=== PATIENT | female | born 1960 | race Hispanic/Latino ===

== ENCOUNTER 2017-03-27 10:13 | Inpatient (IN) | payer MEDICAID ==
--- NOTE | 2017-03-27 10:40 | C.PDOC ---
History Of Present Illness 56 y/o female is transferred from [facility] for psych admission due to depression and suicidal ideation. No active physical complaints at this time. Time Seen by Provider: 03/27/17 10:37 Chief Complaint (Nursing): Psychiatric Evaluation History Per: Patient History/Exam Limitations: no limitations Onset/Duration Of Symptoms: Gradual Current Symptoms Are (Timing): Still Present Suicide/Self Injury Attempted (Context): None Modifying Factor(s): None Severity: None Pain Scale Rating Of: 0 Associated Symptoms: Depression, Suicidal Thoughts Involuntary Hold By: None Recent travel outside of the [place]: No Additional History Per: Patient Past Medical History Reviewed: Historical Data, Nursing Documentation, Vital Signs Vital Signs: Last Vital Signs Temp Pulse Resp 18 03/27/17 12:46 BP Pulse Ox - Medical History PMH: Depression, Fibromyalgia Family History: States: Unknown Family Hx - Social History Hx Alcohol Use: No Hx Substance Use: No - Immunization History Hx Tetanus Toxoid Vaccination: No Hx Influenza Vaccination: No Hx Pneumococcal Vaccination: No Review Of Systems Except As Marked, All Systems Reviewed And Found Negative. Constitutional: Negative for: Fever, Chills Cardiovascular: Negative for: Chest Pain, Palpitations Respiratory: Negative for: Cough, Shortness of Breath Gastrointestinal: Negative for: Nausea, Vomiting, Abdominal Pain Musculoskeletal: Negative for: Neck Pain, Back Pain Neurological: Negative for: Headache, Dizziness Psych: Positive for: Depression, Suicidal ideation Physical Exam - Physical Exam Appears: Non-toxic, No Acute Distress Skin: Normal Color, Warm, Dry Head: Atraumatic, Normacephalic Eye(s): bilateral: Normal Inspection, EOMI Nose: Normal Oral Mucosa: Moist Neck: Normal ROM, Supple Chest: Symmetrical Cardiovascular: Rhythm Regular, No Murmur Respiratory: Normal Breath Sounds, No Rales, No Rhonchi, No Wheezing Gastrointestinal/Abdominal: Soft, No Tenderness Extremity: Normal ROM, No Deformity Extremity: Bilateral: Atraumatic Neurological/Psych: Oriented x3, Normal Speech ED Course And Treatment Progress Note: Patient transferred from [facility] for psych evaluation. Patient to be admitted for depression under Dr Linder. In no distress Disposition Discussed With : Marilu Linder Doctor Will See Patient In The: Hospital - Disposition Disposition: HOSPITALIZED Disposition Time: 13:00 Condition: STABLE - POA Present On Arrival: None - Clinical Impression Clinical Impression: Moderate major depression, single episode - PA / WET ROOM SUPERVISOR / Resident Statement /DO has reviewed & agrees with the documentation as recorded. - Scribe Statement The provider has reviewed the documentation as recorded by the Hueyibradu Chen All medical record entries made by the Hueyibradu were at my direction and personally dictated by me. I have reviewed the chart and agree that the record accurately reflects my personal performance of the history, physical exam, medical decision making, and the department course for this patient. I have also personally directed, reviewed, and agree with the discharge instructions and disposition. Decision To Admit - Pt Status Changed To: Hospital Disposition Of: Inpatient - Admit Certification Admit to Inpatient:: After my assessment, the patient will require hospitalization for at least two midnights. This is because of the severity of symptoms shown, intensity of services needed, and/or the medical risk in this patient being treated as an outpatient. - InPatient: Physician Admission Certification: I certify that this patient requires 2 or more midnights of care for the following reason:: Depression. SI - . Bed Request Type: Psychiatry Admitting Physician: Marilu Linder Patient Diagnosis: Moderate major depression, single episode
--- NOTE | 2017-03-27 11:43 | PCM.BM ---
<Olga Urban - Last Filed: 03/27/17 11:39> Treatment Plan Problems - Problems identified on initial assessmt Depression Date Initiated: 03/27/17 Time Initiated: 11:40 Assessment reference: NA Status: Active Suicidal Ideation Date Initiated: 03/27/17 Time Initiated: 11:46 Assessment reference: NA Status: Active Treatment assets and liabiliti Patient Assests: cooperative, ADL independent, cognitively intact, good interpersonal skills Patient Liabilities: financial problems, substance abuse (None), medical problems (Hypertension, Fibromyalgia) - Milieu Protocol Maintain good personal hygiene: daily Encourage regular showers, daily Remind patient to perform daily oral care, other Assist patient to perform ADL's (Self) Conduct patient checks and document Observation sheet: Q15 minutes (Safety) Maintain personal safety: every shift Educate patient to report safety concerns to staff, every shift Monitor environment for contraband/sharps Medication safety: Monitor for expected outcome, potential side effects: every shift, Assess barriers to learning: every shift, Assess readiness for medication education: every shift <Tanvir Flores - Last Filed: 03/27/17 17:23> - Diagnosis (1) Moderate major depression, single episode Status: Acute Interventions: 03/27/17 17:24 * Assess/adjust medications daily and /or as needed * See patient on an individual basis 7x/week to assess symptoms of depression * Monitor for side effects & effectiveness of medications * (2) Panic disorder Status: Acute Interventions: 03/27/17 17:24 * Assess/adjust medications daily and /or as needed * See patient on an individual basis 7x/week to assess symptoms of anxiety * Educate patient regarding benefits, side effects and risks of prescribed medications * <Stephanie Person - Last Filed: 03/29/17 10:40> Family Contact Family involvement: Famliy/SO not involved - Goals for Treatment Patient goals for treatment: "I [facility] to go back to [facility]." Discharge/Continuing Care - Education Needs Education Needs: Patient Medication, Patient Coping Skills, Patient Placement options, Patient Community resources - Discharge Discharge Criteria: Tolerates medication w/o severe side effects, Free of Suicidal thoughts, Reduction of target symptoms Discharge to:: Custodial - Treatment Team Participation Discussed with Family/SO: No Was Patient/Family/SO present at Treatment Team Meeting: Yes
--- NOTE | 2017-03-27 15:44 | PCM.PSYCH ---
Initial Psychiatric Evaluation - Initial Psychiatric Evaluation Type of Admission: Voluntary Legal Status: Capacity Chief Complaint (in patient's own words): "I'm losing my mind." History of Present Illness and Precipitating Events: Pt is a 56 year old female with PMH of HTN who was transferred from [facility]. Patient is single and has 2 children ages thirty and twenty three. She is currently unemployed and not receiving any income, although she has previously worked as a Home Health Aid. Pt has not had a place to live since Saturday after she left her sisters home where she was allowed to stay for two days. Pt is not involved in any legal problems or on probation. Pt was previously living in [place], [place] where she lived with her boyfriend of 5 years, however, she was not happy in the relationship since she felt like she was more like his mother, all I did was cook and clean, therefore, decided to find a live-in home health aid job in [place] where her family resides and leave her relationship. While working as a home health aid, she met her clients daughter who thought that she was using drugs and was let go by her employer last Saturday. She then stayed over at her sisters home who allowed her to stay for the weekend but was told by her sisters boyfriend she needed to leave by Saturday. While staying with her sister she was in a rage after losing her job and wanting to kill her for taking away my job, pt states that she did not actually have plan to do so. Sister and daughter called the ambulance where she was taken to [facility]. There she reported suicidal ideation, however, today she states she only said because she felt that was the only way anyone would listen and help her. She is currently worried about being homeless and has anxiety about it. She denies any psychiatric history, except for previous depression and panic attacks. She was given zoloft 100 mg BID but takes one only and klonopin 1 mg TID, confirmed via I-STOP. She also denies any psychiatric family history. Pt reports smoking ppd. After care discussed. Pt states that she does not currently have a plan, but admits that her current state of mind is not suitable for looking for employment at this moment but that she also does not want to be homeless and live in her car. It is suggested that the patient find employment as a Home health aid or ask other family members if she can reside with them until she does find employment. Will work with . Current Medications: Active Medications Generic Name Dose Route Start Last Admin Trade Name Freq PRN Reason Stop Dose Admin Clonazepam 1 mg 03/27/17 18:00 Klonopin PO BID RHONA Clonidine HCl 0.1 mg 03/27/17 12:20 Catapres PO Q6H PRN BP>150/100 or P>110 Hydrochlorothiazide 25 mg 03/27/17 14:00 Hydrodiuril PO DAILY RHONA Hydroxyzine HCl 25 mg 03/27/17 11:54 Atarax PO Q4H PRN Anxiety Ibuprofen 600 mg 03/27/17 11:54 Motrin Tab PO Q6H PRN Pain, moderate (4-7) Lisinopril 20 mg 03/27/17 14:00 Zestril PO DAILY RHONA Pneumococcal Polyvalent Vaccine 0.5 ml 03/30/17 10:00 Pneumovax 23 Vaccine IM 03/30/17 10:01 .ONCE ONE Sertraline HCl 100 mg 03/28/17 10:00 Zoloft PO DAILY RHONA Trazodone HCl 50 mg 03/27/17 11:54 Desyrel PO HS PRN Insomnia Past Psychiatric History - Past Psychiatric History Previous Treatment History: None Pertinent Medical Hx (Current Medical&Sleep Prob, Allergies): Allergies Allergy/AdvReac Type Severity Reaction Status Date / Time No Known Allergies Allergy Verified 03/27/17 10:27 Clonazepam 03/27/17 Lisinopril 03/27/17 Sertraline 03/27/17 Review of Systems - Neurological Neurological: UNREMARKABLE - Psychiatric Psychiatric: Abnormal Sleep Pattern, Anxiety, Depression, Difficulty Concentrating, Irritability, Panic Attacks. absent: Hallucinations, Homicidal Ideation, Suicidal Ideation Mental Status Examination - Personal Presentation Personal Presentation: Looks older than stated age - Affect Affect: Broad - Motor Activity Motor Activity: Psychomotor Agitation - Reliability in Providing Information Reliability in Providing Information: Good - Speech Speech: Organized, Relevant, Coherent, Other Additional comments: Circumstantial - Mood Mood: Anxious - Formal Thought Process Formal Thought Process: No Impairment - Obsessions/Compulsions Obsessions: None Compulsions: None - Cognitive Functions Orientation: Person, Place, Situation, Time Sensorium: Alert Attention/Concentration: Attentive Estimate of Intelligence: Average Judgement: Intact, as evidence by: Insight regarding need for hospitalization Memory: Recent intact, as evidence by: Ability to recall events of the day, Remote intact, as evidenced by: Abilit to recall sig. 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 d/o - Recommended/Plan of Treatment Treatment Recommendations and Plan of Treatment: Depression and panic: - Zoloft 100mg PO daily - Trazodone 50mg PO PRN - Klonopin 1mg PO BID - Atarax 25mg PO Q4 PRN Attend groups and activities Individual therapy Psychoeducation and support Encourage compliance with meds and after care Teach healthy lifestyle methods, i.e. diet, exercise, meditation Smoking cessation Borderine: -Structure -Psychotherapy 37 min Projected ELOS: 7 days Prognosis: Good with treatment - Smoking Cessation Smoking Cessation Initiated: Yes
--- NOTE | 2017-03-28 13:46 | PCM.PYCHPN ---
Psychiatric Progress Note - Psychiatric Progress Note Patient seen today, length of contact: 17 minutes Patient Chief Complaint: "I'm feeling much better" Problems Identified/Issues Discussed: The pt is seen, chart reviewed, case discussed with staff. The pt is compliant with medications and reports no side-effects. Pt reports sleeping well throughout the night, feeling much more like herself. Received a note her daughter last night which really boosted her spirits. Symptoms are improving but needs more time to stabilize. After care discussed, support and psychoeducation given. Will speak with SW in regards to housing and resources available to her. Medication Change: Yes (Zoloft started ) Medical Record Reviewed: Yes Mental Status Examination - Cognitive Function Orientation: Person, Place, Situation, Time Memory: Intact Attention: WNL Concentration: WNL Association: WNL Fund of Knowledge: WNL - Mood Mood: Neutral - Affect Affect: Broad - Speech Speech: Appropriate - Formal Thought Process Formal Thought Process: No Impairment - Suicidal Ideation Suicidal Ideation: No - Homicidal Ideation Homicidal Ideation: No Goal/Treatment Plan - Goal/Treatment Plan Need for Continued Stay: Remain at risks for inpatient hospitalization, Discharge may exacerbated symptoms Progress Toward Problem(s) and Goals/Treatment Plan: Depression and panic: - Zoloft 100mg PO daily - Trazodone 50mg PO PRN - Klonopin 1mg PO BID - Atarax 25mg PO Q4 PRN Attend groups and activities Individual therapy Psychoeducation and support Encourage compliance with meds and after care Teach healthy lifestyle methods, i.e. diet, exercise, meditation Smoking cessation Borderline: -Structure -Psychotherapy 16 min
--- NOTE | 2017-03-29 13:56 | PCM.PYCHPN ---
Psychiatric Progress Note - Psychiatric Progress Note Patient seen today, length of contact: 19 mins Patient Chief Complaint: "I feel okay doc" Problems Identified/Issues Discussed: The pt is seen, chart reviewed, case discussed with staff. The pt is compliant with medications and reports no side-effects. Upon initial conversation, patient states that she slept well and her mood has increased, denies SI. However, in team meeting patient was agitated because she felt "nothing was being done for me here", she was entitled and demanding that the SW do things for her. She even said outrageous things like "I'll sit here (she put arms behind her head) and YOU will do these for me!!" Pt became angry and uncooperative during the interview at which point the interview was ended. Symptoms are improving but needs more time to stabilize. Her personlaity disorder and lack of insight are obstacles but will be worked on. After care discussed, support and psychoeducation given. Medication Change: No Medical Record Reviewed: Yes Mental Status Examination - Cognitive Function Orientation: Person, Place, Situation, Time Memory: Intact Attention: WNL Concentration: WNL Association: WNL Fund of Knowledge: WNL - Mood Mood: Anxious, Other Additional comments: Agitated - Affect Affect: Broad - Speech Speech: Loud - Formal Thought Process Formal Thought Process: No Impairment - Suicidal Ideation Suicidal Ideation: No - Homicidal Ideation Homicidal Ideation: No Goal/Treatment Plan - Goal/Treatment Plan Need for Continued Stay: Discharge may exacerbated symptoms Progress Toward Problem(s) and Goals/Treatment Plan: Depression and panic: - Zoloft 100mg PO daily - Trazodone 50mg PO PRN - Klonopin 1mg PO BID - Atarax 25mg PO Q4 PRN Attend groups and activities Individual therapy Psychoeducation and support Encourage compliance with meds and after care Teach healthy lifestyle methods, i.e. diet, exercise, meditation Smoking cessation Borderline: -Structure -Psychotherapy 19 min Estimated Date of D/C: 04/02/17 (Patient needs more time to stabilize )
[2017-03-30 07:10] VITALS: O2SAT 95
[2017-03-30] MEDS ORDERED: Pneumococcal 23-Valent Vaccine IM ONE (10:00)
--- NOTE | 2017-03-30 17:10 | PCM.PYCHPN ---
Psychiatric Progress Note - Psychiatric Progress Note Patient seen today, length of contact: 25 mins Patient Chief Complaint: I'm fine Problems Identified/Issues Discussed: Patient was seen. Chart was reviewed important content noted. Nurse input received. Patient has no new complaints. No events overnight. Patient slept well and is eating well. Patient denies any depressive symptoms. Denies suicidal or homicidal ideations. Patient does not report hallucinations. No delusions elicited. No paranoia elicited. Patient has remained in good clinical and behavioral control. Patient is finding medications beneficial and would like to continue with treatment plan. Diagnostic Results: None Medication Change: No Medical Record Reviewed: Yes Mental Status Examination - Cognitive Function Orientation: Person, Place, Situation, Time Memory: Intact Attention: WNL Concentration: WNL Association: WNL Fund of Knowledge: WNL - Mood Mood: Depressed, Anxious, Other - Affect Affect: Broad - Speech Speech: Appropriate - Formal Thought Process Formal Thought Process: No Impairment - Suicidal Ideation Suicidal Ideation: No - Homicidal Ideation Homicidal Ideation: No Plan: denied Goal/Treatment Plan - Goal/Treatment Plan Need for Continued Stay: Discharge may exacerbated symptoms Progress Toward Problem(s) and Goals/Treatment Plan: Depression and panic: - Zoloft 100mg PO daily - Trazodone 50mg PO PRN - Klonopin 1mg PO BID - Atarax 25mg PO Q4 PRN Attend groups and activities Individual therapy Psychoeducation and support Encourage compliance with meds and after care Teach healthy lifestyle methods, i.e. diet, exercise, meditation Smoking cessation Borderline: -Structure -Psychotherapy Estimated Date of D/C: 04/02/17 (Patient needs more time to stabilize ) - Smoking Cessation Smoking Cessation Initiated: Yes
--- NOTE | 2017-03-31 17:12 | PCM.PYCHPN ---
Psychiatric Progress Note - Psychiatric Progress Note Patient seen today, length of contact: 25 mins Patient Chief Complaint: "I'm better" Problems Identified/Issues Discussed: Patient was seen. Chart was reviewed important content noted. Nurse input received. Patient has no new complaints. No events overnight. Patient slept well and is eating well. Patient denies any depressive and anxiety symptoms. Denies suicidal or homicidal ideations, intent or plan. Patient does not report hallucinations. No delusions elicited. No paranoia elicited. Patient has remained in good clinical and behavioral control. Pt reported after discharge she has had no plan to stay in longterm. She stated that she would like to stay in her car. Patient is finding medications beneficial and would like to continue with treatment plan. Diagnostic Results: None DSM 5 Symptoms Update: MDD Recurrent Cluster B trait, Borderline personality d/o Panic disorder without agoraphobia Medication Change: No Medical Record Reviewed: Yes Mental Status Examination - Cognitive Function Orientation: Person, Place, Situation, Time Memory: Intact Attention: WNL Concentration: WNL Association: WN Fund of Knowledge: [facility] Decription of patient's judgement and insights: fair/limited - Mood Mood: Anxious, Other (I'm feeling better) - Affect Affect: Other (full) - Speech Speech: Appropriate - Formal Thought Process Formal Thought Process: No Impairment Psychotic Thoughts and Behaviors: denied - Suicidal Ideation Suicidal Ideation: No - Homicidal Ideation Homicidal Ideation: No Goal/Treatment Plan - Goal/Treatment Plan Need for Continued Stay: Discharge may exacerbated symptoms Progress Toward Problem(s) and Goals/Treatment Plan: Depression and panic: - Zoloft 100mg PO daily - Trazodone 50mg PO PRN - Klonopin 1mg PO BID - Atarax 25mg PO Q4 PRN Attend groups and activities Individual therapy Psychoeducation and support Encourage compliance with meds and after care Teach healthy lifestyle methods, i.e. diet, exercise, meditation Smoking cessation Borderline: -DBT Estimated Date of D/C: 04/02/17 (Patient needs more time to stabilize )
[2017-04-01 09:21] VITALS: BP 116/74; PULSE 69; RESP 17; TEMP 98.2
[2017-04-01] MEDS ORDERED: Influenza Vaccine 60 mcg/0.5 mL SYR (4YR UP) IM ONE (11:02)
--- NOTE | 2017-04-01 12:22 | PCM.PYCHDC ---
Mental Status Examination - Mental Status Examination Orientation: Person, Place, Situation, Time Memory: Intact Mood: Neutral Affect: Broad Speech: Appropriate Attention: WNL Concentration: WNL Association: WNL Fund of Knowledge: WNL Formal Thought Process: No Impairment Suicidal Ideation: No Current Homicidal Ideation?: No Discharge Summary - Discharge Note Reason for Hospitalization: Depression and suicidal ideation. Consultations:: List each consultation separately and include: 1. Reason for request. 2. Findings. 3. Follow-up Summary of Hospital Course include:: 1. Description of specific treatment plan utilized for patients during their course of treatmen. 2. Summarize the time- course for resolution of acute symptoms and/or regressed behaviors. 3. Describe issues identified and worked on during hospitalization. 4. Describe medication utilized. 5. Describe medical problems identified and treated. 6. Reassessment of suicide risk Summary of Hospital Course: The pt was admitted and started on treatment with psychotherapy, support, psychoeducation and medications. RI and CBT used. The pt attended groups and activities, as well as milieu therapy. All the risks and benefits of medications are discussed and the patient understood and agreed. The pt improved with the treatments provided. She slept well and has no complaints at this time. After care discussed with the patient. Pt states that she will like to leave as she feels better and wants to "get her life back together". Pt will contact both sister and daughter to have them pick her up and will start to call and make arrangements for living arrangements. She was demanding, entitled, irate and splitting. She was not interested in after care and claimed she lied to get here. - Final Diagnosis (DSM 5) Condition upon Discharge: STABLE DSM 5: Major depressive disorder d/o recurrent, moderate Panic d/o without agoraphobia Adjustment d/o Borderline personality d/o Disposition: HOME/ ROUTINE Follow-up Treatment Plan: Continue below medications after discharge. Follow after care plan as discussed. Use relapse prevention skills Return to ER or call 911 if suicidal, homicidal or symptoms relapse. Stay away from stress, alcohol and drugs. See primary doctor regularly and get labs. Prescriptions/Medication Reconciliation: Lisinopril [Zestril] 20 mg PO DAILY #30 tab Sertraline [Zoloft] 100 mg PO DAILY #30 tab traZODone [Desyrel] 50 mg PO HS PRN #30 tab PRN Reason: Insomnia - Antipsychotic Medications Pt discharged on 2 or more routine antipsychotic medications: No
--- NOTE | 2017-04-06 12:09 | PCM.PYCHPN ---
Psychiatric Progress Note - Psychiatric Progress Note Patient seen today, length of contact: 15 min Patient Chief Complaint: "OK today" Problems Identified/Issues Discussed: The pt is seen, chart reviewed, case discussed with staff. Wants to leave today Risks discussed and she understood She gets loud and demanding when she hears smt against her wishes. No Si, HI or AVH Mood is "good" and she looks not depressed She plans to get her family pick her up and start calling places to stay and look for a job She agreed to continue meds (no klonopin though) Medication Change: No Medical Record Reviewed: Yes Mental Status Examination - Cognitive Function Orientation: Person, Place, Situation, Time Memory: Intact Attention: WNL Concentration: WNL Association: WNL Fund of Knowledge: WNL - Mood Mood: Neutral - Affect Affect: Broad - Speech Speech: Appropriate - Formal Thought Process Formal Thought Process: No Impairment - Suicidal Ideation Suicidal Ideation: No - Homicidal Ideation Homicidal Ideation: No Goal/Treatment Plan - Goal/Treatment Plan Progress Toward Problem(s) and Goals/Treatment Plan: Continue below medications after discharge. Follow after care plan as discussed. Use relapse prevention skills Return to ER or call 911 if suicidal, homicidal or symptoms relapse. Stay away from stress, alcohol and drugs. See primary doctor regularly and get labs. Estimated Date of D/C: 04/01/17 (Patient needs more time to stabilize ) If changed, why: per her request
== END 2017-04-01 15:10 | disposition home or self-care (01) | DRG 430 ==
LOC: C.ER 10:13 → C.5E 10:40
PROVIDERS: ADMIT Psychiatry & Neurology Psychiatry; ATTEND Psychiatry & Neurology Psychiatry
PROC: GZ58ZZZ Individual Psychotherapy, Cognitive-Behavioral (ICD-10-PCS; principal; 2017-03-27)
PROC: GZ56ZZZ Individual Psychotherapy, Supportive (ICD-10-PCS; 2017-03-27)
DX: F32.1 Major depressive disorder, single episode, moderate (principal); R45.851 Suicidal ideations; I10 Essential (primary) hypertension; F41.0 Panic disorder [episodic paroxysmal anxiety]; F60.3 Borderline personality disorder; M79.7 Fibromyalgia; Z79.899 Other long term (current) drug therapy